=== PATIENT | female | born 1960 | race Caucasian/White ===

== ENCOUNTER → 2017-09-15 | Outpatient (CLI) | payer OTHER ==
[~2017-09-15] MED LIST: LISINOPRIL-HCT1 EACH PO
== END ==
LOC: RAD 01:03
DX: Z12.31 Encounter for screening mammogram for malignant neoplasm of breast (principal)

== ENCOUNTER → 2019-06-05 | Outpatient (CLI) | payer OTHER | LOC: RAD 09:02 | DX: Z12.31 Encounter for screening mammogram for malignant neoplasm of breast (principal) ==

== ENCOUNTER → 2020-09-16 | Outpatient (CLI) | payer OTHER | LOC: BC 09:26 | PROVIDERS: ATTEND Family Medicine | DX: Z12.31 Encounter for screening mammogram for malignant neoplasm of breast (principal) ==